=== PATIENT | female | born 1990 | race Caucasian/White ===

== ENCOUNTER 2020-04-26 14:53 | Emergency (ER) | payer MEDICAID ==
[~2020-04-26] VITALS: Ht 170.2 cm; Wt 81.6 kg
[2020-04-26 15:05] VITALS: BP_SYST 124
--- NOTE | 2020-04-26 15:10 | NUR ---
ambulated to bed 8
--- NOTE | 2020-04-26 15:15 | NUR ---
ER Dr. Sierra at bedside examining patient.
--- NOTE | 2020-04-26 15:26 | NUR ---
Pt came to ER for R earache x4days rates pain 10/10. Pt resting in gurney comfortably, no other complaints at this time, has completed evaluation.
[2020-04-26] MEDS ORDERED: HYDROcodone/ACETAMIN 10-325 MG TAB PO ONE (15:45)
[2020-04-26 15:49] VITALS: BP_SYST 124
--- NOTE | 2020-04-26 15:49 | NUR ---
Patient given written and verbal discharge instructions and verbalizes understanding. ER MD discussed with patient the results and treatment provided. Patient in stable condition. ID arm band removed. Rx of Tramadol and Cortisporin given. Patient educated on pain management and to follow up with PMD. Pain Scale 3/10. Opportunity for questions provided and answered. Medication side effect fact sheet provided.
== END 2020-04-26 15:49 | disposition home or self-care (01) ==
LOC: SED 14:53
DX: H60.91 Unspecified otitis externa, right ear (principal); Z88.6 Allergy status to analgesic agent; Z88.8 Allergy status to other drugs, medicaments and biological substances
CPT/HCPCS: 99283

== ENCOUNTER 2020-04-26 22:17 | Emergency (ER) | payer MEDICAID ==
[~2020-04-26] VITALS: Ht 170.2 cm; Wt 81.6 kg
[2020-04-26 22:17] VITALS: BP_SYST 126
--- NOTE | 2020-04-26 22:17 | NUR ---
Patient to ER bed 7 to gown for evaluation. Side rails up.
--- NOTE | 2020-04-26 22:27 | NUR ---
Pt came to ER for R earache, presents red and painful rates pain 10/10. Pt was seen in [facility] ER earlier that day. [facility] awaiting
--- NOTE | 2020-04-26 22:28 | NUR ---
ER at bedside examining patient.
--- NOTE | 2020-04-26 22:31 | NUR ---
Patient given written and verbal discharge instructions and verbalizes understanding. ER MD discussed with patient the results and treatment provided. Patient in stable condition. ID arm band removed. Rx of Augmentin given. Patient educated on pain management and to follow up with PMD. Pain Scale 3/10. Opportunity for questions provided and answered. Medication side effect fact sheet provided.
== END 2020-04-26 22:31 | disposition home or self-care (01) ==
LOC: SED 22:17
DX: H65.191 Other acute nonsuppurative otitis media, right ear (principal); Z88.6 Allergy status to analgesic agent; Z88.8 Allergy status to other drugs, medicaments and biological substances
CPT/HCPCS: 99283

== ENCOUNTER 2022-12-14 21:34 | Emergency (ER) | payer MEDICAID ==
[~2022-12-14] VITALS: Ht 170.2 cm; Wt 113.4 kg
[2022-12-14 21:35] VITALS: BP_SYST 155
[2022-12-14 22:16] LABS: BASOPHILS # (AUTO) 0.1 K/uL (0.0-0.2); BASOPHILS % (AUTO) 0.5 % (0.0-2.0); EOSINOPHILS # (AUTO) 0.1 K/uL (0.0-0.4); EOSINOPHILS % (AUTO) 0.7 % (0.0-4.0); HEMOGLOBIN 11.8 g/dL (12.0-16.0); LYMPHOCYTES # (AUTO) 2.8 K/uL (1.0-5.5); LYMPHOCYTES % (AUTO) 22.8 % (20.5-51.5); MEAN CORPUSCULAR HEMOGLOBIN 26 pg (27-31); MEAN CORPUSCULAR HGB CONC 32 % (32-36); MEAN CORPUSCULAR VOLUME 81 fL (79.0-98.0); MONOCYTES # (AUTO) 0.9 K/uL (0.0-1.0); MONOCYTES % (AUTO) 7.5 % (1.7-9.3); NEUTROPHILS # (AUTO) 8.4 K/uL (1.8-7.7); NEUTROPHILS % (AUTO) 68.5 % (40.0-70.0); PLATELET COUNT (AUTO) 424 K/uL (130-430); RED BLOOD CELL COUNT(AUTO) 4.57 MIL/uL (4.2-6.2); RED CELL DISTRIBUTION WIDTH 14.2 % (9.0-15.0); WHITE BLOOD COUNT (AUTO) 12.2 K/uL (4.8-10.8)
[2022-12-14 22:33] LABS: ALANINE AMINOTRANSFERASE 20 U/L (12-78); ALBUMIN 3.3 g/dL (3.4-4.8); ANION GAP 8 (5-15); ASPARTATE AMINOTRANSFERASE 20 U/L (10-37); CALCIUM 8.2 mg/dL (8.4-11.0); CHLORIDE 100 mmol/L (98-107); CREATININE 0.82 mg/dL (0.55-1.30); GFR AFRICAN AMERICAN 103 mL/min (>90); GLUCOSE 105 mg/dL (70-99); TOTAL BILIRUBIN 0.2 mg/dL (0.0-1.0); UREA NITROGEN, BLOOD 12 mg/dL (8-21)
[2022-12-14 22:41] LABS: THYROID STIMULATING HORMONE 2.95 uIu/mL (0.36-3.74)
[2022-12-14] MEDS ORDERED: LORazepam 2 MG/ML VIAL IVP ONE (23:00)
[2022-12-14 23:53] LABS: CANNABINOID, URINE POSITIVE (NEG <=50)
[2022-12-14 23:54] LABS: BARBITURATE, URINE NEGATIVE (NEG <=200); BENZODIAZEPINE, URINE NEGATIVE (NEG <=150); COCAINE, URINE NEGATIVE (NEG <=150); METHAMPHETAMINES SCREEN,URINE POSITIVE (NEG <=500); OPIATE, URINE NEGATIVE (NEG <=100); PHENCYCLIDINE SCREEN,URINE NEGATIVE (NEG <=25); URINE AMPHETAMINE POSITIVE (NEG <=500); URINE METHADONE NEGATIVE (NEG <=200); URINE OXYCODONE SCREEN NEGATIVE (NEG <=100); URINE PROPOXYPHENE SCREEN NEGATIVE (NEG <=300)
[2022-12-14 23:55] LABS: UR TRICYCLIC ANTIDEPRESSANTS NEGATIVE (NEG <=300)
[2022-12-14 23:59] VITALS: BP_SYST 121
== END 2022-12-15 00:33 | disposition home or self-care (01) ==
LOC: SED 21:34
DX: R07.9 Chest pain, unspecified (principal); F15.90 Other stimulant use, unspecified, uncomplicated; F12.90 Cannabis use, unspecified, uncomplicated; I10 Essential (primary) hypertension; Z88.6 Allergy status to analgesic agent; Z88.8 Allergy status to other drugs, medicaments and biological substances; Z79.899 Other long term (current) drug therapy
CPT/HCPCS: 99285; 96374; 71045; 80307; 80053; 82550; 83880; 84443; 85025; 85379; 87040; 84484; 36415; 93005; 83605; J2060

== ENCOUNTER 2023-07-03 16:06 | Emergency (ER) | payer MEDICAID, OTHER ==
[~2023-07-03] VITALS: Ht 170.2 cm; Wt 95.3 kg
[2023-07-03 16:06] VITALS: BP_SYST 130; PULSE 106; RESP 19; TEMP 97; O2SAT 99
== END 2023-07-03 17:38 | disposition left against medical advice (07) ==
LOC: SED 16:06
DX: H92.03 Otalgia, bilateral (principal); Z53.21 Procedure and treatment not carried out due to patient leaving prior to being seen by health care provider
CPT/HCPCS: 99281